=== PATIENT | female | born 1965 | race Two or more races ===

== ENCOUNTER 2020-11-28 09:35 | Emergency (ER) | payer MEDICAID, OTHER ==
[~2020-11-28] VITALS: Ht 160 cm; Wt 90.7 kg
[2020-11-28 09:40] VITALS: BP 161/87
== END 2020-11-28 12:32 | disposition left against medical advice (07) ==
LOC: ER 09:35
DX: J40 Bronchitis, not specified as acute or chronic (principal); Z53.21 Procedure and treatment not carried out due to patient leaving prior to being seen by health care provider